=== PATIENT | male | born 1950 | race Caucasian/White ===

== ENCOUNTER 2020-07-15 08:51 | Outpatient (REF) | payer MEDICARE, OTHER, SELFPAY ==
[2020-07-15 09:25] LABS: MANUAL DIFF FLAG NO
[2020-07-15 09:29] LABS: Basophils Percent Auto 0.4 % (0-2); Eosinophils Absolute Auto 0.3 X10*3/uL (0.0-0.4); Eosinophils Percent Auto 4.9 % (0-4); Glucose Urine UA NEG (NEG); Hematocrit 43.7 % (42-52); Imm Gran Abs Auto 0.01 X10*3/uL (0.00-0.03); Imm Gran Pct Auto 0.2 % (0.0-0.4); Leukocyte Esterase Urine NEG (NEG); Lymphocytes Absolute Auto 1.2 X10*3/uL (1.2-4.9); Mean Corpuscular HGB Conc 34.3 g/dl (31.0-36.0); Mean Corpuscular Hemoglobin 31.7 pg (27.0-33.0); Mean Corpuscular Volume 92.4 fL (80-98); Monocytes Absolute Auto 0.5 X10*3/uL (0.1-1.2); Monocytes Percent Auto 8.8 % (2-11); Neutrophils Absolute Auto 3.6 X10*3/uL (2.0-8.3); Neutrophils Percent Auto 64.7 % (45-73); Nitrite Urine NEG (NEG); PH 5.5 (5.0-8.0); Platelet Count 222 X10*3/uL (160-400); Red Blood Count 4.73 X10*6/uL (4.60-5.80); Red Cell Distribution Width 12.3 % (11.0-16.0); Specific Gravity - Urine 1.025 (1.005-1.025); Urine Blood 1+ (NEG); Urine Ketones NEG (NEG); Urine Protein NEG (NEG-TRACE); White Blood Count 5.5 X10*3/uL (4.8-10.8)
[2020-07-15 09:32] LABS: Appearance Urine CLEAR; Color Urine YELLOW
[2020-07-15 09:50] LABS: Mucus Urine 2+ /LPF; RBC Urine 0-2 /HPF (0); Squamous Epithelial Cell Urine TRACE /LPF; WBC Urine 0-2 /HPF (0-4)
[2020-07-15 09:56] LABS: Alanine Aminotransferase 25 U/L (0-40); Alkaline Phosphatase 57 U/L (39-117); Anion Gap 11 (12-20); Aspartate Amino Transferase 17 U/L (5-37); Bilirubin Total 1.6 mg/dL (0.0-1.0); Blood Urea Nitrogen 18 mg/dL (9-16); Calcium 8.7 mg/dL (8.4-10.2); Carbon Dioxide 27 mmol/L (22-29); Chloride 107 mmol/L (96-108); Cholesterol 195 mg/dL; Estimated Glomerular Filt Rate > 60; Glucose Fasting 106 mg/dL (60-99); HDL Cholesterol 55 mg/dL; LDL Cholesterol Calculated 122 mg/dl; Sodium 141 mmol/L (135-145); Total Protein 6.4 g/dL (6.5-8.0); Triglycerides 90 mg/dL
[2020-07-15 10:21] LABS: Prostate Specific Antigen 4.75 ng/mL (<0.05-4.0)
== END 2020-07-15 08:52 | disposition home or self-care (01) ==
LOC: HO.LAB 08:51
PROVIDERS: PCP Internal Medicine; Visit Provider Internal Medicine
DX: K58.9 Irritable bowel syndrome, unspecified (principal); R79.9 Abnormal finding of blood chemistry, unspecified; E78.00 Pure hypercholesterolemia, unspecified; R97.20 Elevated prostate specific antigen [PSA]
CPT/HCPCS: 36415; 80053; 80061; 81001; 84153; 85025

== ENCOUNTER 2021-08-03 10:49 | Outpatient (REF) | payer MEDICARE, OTHER, SELFPAY ==
[2021-08-03 10:53] LABS: MANUAL DIFF FLAG NO
[2021-08-03 11:08] LABS: Basophils Percent Auto 0.7 % (0-2); Eosinophils Absolute Auto 0.4 X10*3/uL (0.0-0.4); Eosinophils Percent Auto 6.2 % (0-4); Hemoglobin 15.5 g/dl (14.0-18.0); Imm Gran Abs Auto 0.01 X10*3/uL (0.00-0.03); Imm Gran Pct Auto 0.2 % (0.0-0.4); Lymphocytes Absolute Auto 1.4 X10*3/uL (1.2-4.9); Lymphocytes Percent Auto 22.4 % (20-40); Mean Corpuscular HGB Conc 34.4 g/dl (31.0-36.0); Mean Corpuscular Hemoglobin 32.2 pg (27.0-33.0); Mean Corpuscular Volume 93.6 fL (80.0-98.0); Mean Platelet Volume 9.7 fL (9.4-12.4); Monocytes Absolute Auto 0.6 X10*3/uL (0.1-1.2); Monocytes Percent Auto 9.5 % (2-11); Neutrophils Absolute Auto 3.7 x10*3/uL (2.0-8.3); Platelet Count 235 X10*3/uL (160-400); Red Blood Count 4.81 X10*6/uL (4.60-5.80); Red Cell Distribution Width 12.3 % (11.0-16.0); White Blood Count 6.1 X10*3/uL (4.8-10.8)
[2021-08-03 11:15] LABS: Appearance Urine CLEAR; Color Urine YELLOW; Glucose Urine UA NEG (NEG); Leukocyte Esterase Urine NEG (NEG); Nitrite Urine NEG (NEG); Specific Gravity - Urine >= 1.030 (1.005-1.025); Urine Blood 1+ (NEG); Urine Ketones NEG (NEG); Urine Protein NEG (NEG-TRACE)
[2021-08-03 11:49] LABS: Mucus Urine 2+ /LPF; RBC Urine 0-2 /HPF (0); WBC Urine 0-2 /HPF (0-4)
[2021-08-03 12:15] LABS: Alanine Aminotransferase 24 U/L (0-40); Alkaline Phosphatase 55 U/L (39-117); Anion Gap 13 (12-20); Aspartate Amino Transferase 18 U/L (5-37); Bilirubin Total 1.5 mg/dL (0.0-1.0); Blood Urea Nitrogen 16 mg/dL (9-16); Carbon Dioxide 24 mmol/L (22-29); Chloride 108 mmol/L (96-108); Cholesterol 196 mg/dL; Estimated Glomerular Filt Rate > 60; Glucose Fasting 94 mg/dL (60-99); HDL Cholesterol 46 mg/dL; LDL Cholesterol Calculated 128 mg/dl; Potassium 4.3 mmol/L (3.3-5.1); Sodium 141 mmol/L (135-145); Total Protein 6.8 g/dL (6.5-8.0); Triglycerides 111 mg/dL
[2021-08-03 12:24] LABS: PSA,Total (Free>4and<10) 3.31 ng/mL (0.00-4.00)
== END 2021-08-03 10:50 | disposition home or self-care (01) ==
LOC: HO.LNP 10:49
PROVIDERS: PCP Internal Medicine; Visit Provider Internal Medicine
DX: Z12.5 Encounter for screening for malignant neoplasm of prostate (principal); R97.20 Elevated prostate specific antigen [PSA]; E78.00 Pure hypercholesterolemia, unspecified; R79.9 Abnormal finding of blood chemistry, unspecified
CPT/HCPCS: 80053; 80061; 81001; 81003; 84153; 85025

== ENCOUNTER → 2021-09-17 13:19 | Outpatient (BNVA) | payer MEDICARE, OTHER, SELFPAY | PROVIDERS: PCP Internal Medicine; Referring Provider Internal Medicine; Visit Provider Internal Medicine Cardiovascular Disease | DX: R07.89 Other chest pain (principal); E78.5 Hyperlipidemia, unspecified | CPT/HCPCS: 93005; 99202 ==

== ENCOUNTER → 2021-09-21 08:42 | Outpatient (REF) | payer MEDICARE, OTHER, SELFPAY ==
--- NOTE | 2021-09-21 08:46 | CA_ITS ---
Acquisition Time: 2021-09-21 09:07:17 Total Exercise Time: 00:06:51 Test Indications: cp Medications: Protocol: MARTY Max HR: 146 BPM 98% of Pred: 148 BPM Max BP: 166/078 mmHG Max Work Load: 8.2 METS Exercise stress test with exercise 6 min 51 sec of Marty protocol, with mild sob, no chest discomfort, with isolated PAC and PVC, with normotensive response to exercise, without EKG changes meeting criteria for ischemia. Test reviewed with Dr Lopez. Referred By: Td Cheney Overread By: ARETHA MOSCOSO
== END ==
LOC: HO.CARD 08:42
PROVIDERS: Visit Provider Internal Medicine Cardiovascular Disease
DX: R07.89 Other chest pain (principal)
CPT/HCPCS: 93017

== ENCOUNTER 2021-10-18 09:05 | Emergency (ER) | payer MEDICARE, OTHER, SELFPAY ==
--- NOTE | ~2021-10-18 | XR_ITS ---
EXAMINATION: XR KNEE, LEFT CLINICAL INFORMATION: Pain COMPARISON: None TECHNIQUE: Four views of the left knee. FINDINGS: Bones and soft tissues are normal. No fracture or joint effusion. Alignment is anatomic. Joint spaces are well maintained. No abnormal soft tissue calcification. XR/XR knee LT 4V IMPRESSION: No significant osseous changes to explain patient's pain symptoms.
[2021-10-18 09:13] VITALS: BP 129/65; PULSE 60; RESP 14; TEMP 36.4; O2SAT 97; BMI 26.6
--- NOTE | 2021-10-18 09:27 | ED.GENADULT ---
HPI - General Adult General Chief complaint: Extremity Injury, Lower Stated complaint: L knee pain Time Seen by Provider: 10/18/21 09:18 Source: patient Mode of arrival: ambulatory Limitations: no limitations History of Present Illness HPI narrative: 31-year-old healthy male with history high cholesterol and left knee meniscus removal return to the ED for atraumatic left knee pain since yesterday and pain on ambulation. Patient denies any swelling, redness, warmth, fever, chills, leg swelling, chest pain, shortness of breath, or any trauma. Patient states every so often he will have runner's knee last time was a year ago. Patient states had meniscus removal left knee 10 years ago. Patient denies any history of gout, septic joint, DVT, or smoking Related Data Home Medications Medication Instructions Recorded Confirmed omeprazole 20 mg capsule,delayed 20 mg PO QAM PRN 09/17/21 09/17/21 release Previous Rx's Medication Instructions Recorded rosuvastatin 10 mg tablet 10 mg PO DAILY #30 tab 09/17/21 ketorolac 10 mg tablet 10 mg PO Q6H PRN 5 Days #20 tab 10/18/21 prednisone 20 mg tablet 40 mg PO DAILY 5 Days #10 tab 10/18/21 Allergies Allergy/AdvReac Type Severity Reaction Status Date / Time No Known Allergies Allergy Unverified 03/27/20 14:43 [No Known Allergies*] Review of Systems Review of Systems: Atraumatic left knee pain Yes all other systems are reviewed and are negative PMFSH Past Medical History Medical History Hyperlipidemia Surgical History Hx of colonoscopy Family History Family History Father CAD (coronary artery disease) Mother No problems noted. Social History Social History Patient Tobacco Use Status: Former Tobacco user Advance Directives: No Advance Directives Information Provided: No Physical Exam ED Vital Signs: Vital Signs - 24 hr 10/18/21 09:13 Temperature 97.6 F Pulse Rate 60 Respiratory Rate 14 Blood Pressure 129/65 Pulse Oximetry 97 BMI result Body Mass Index 26.6 Const General: cooperative, healthy appearing, comfortable, no acute distress, well developed, alert, awake and Physically active Orientation/consciousness: patient oriented x3 [facility] Head: Yes normal to inspection, Yes No palpable skull fracture present, Yes normocephalic, Yes atraumatic and No abrasion Eyes General: appearance normal, both eyes and all related structures Neck Neck: Yes normal visual inspection, Yes full ROM, Yes no lymphadenopathy, Yes no meningeal signs, Yes trachea midline, No anterior neck swelling and No tender Chest Chest palpation & inspection: normal inspection of the chest and normal palpation of entire chest wall Resp Effort & Inspection: normal respiratory effort and able to speak in complete sentences Auscultation: clear to auscultation bilaterally Cardio Jugular venous distension: no JVD Heart sounds: S1 normal heart sound present and S2 normal heart sound present GI Inspection: Yes normal to inspection and No abdominal wall ecchymosis Palpation (GI): Soft to palpation, not firm, nontender, no guarding and not rigid General: No CVA tenderness and Yes no CVA tenderness Back/Spine/Pelvis Back: no CVA tenderness, No CVA tenderness and No back tenderness Skin General skin exam: no rashes or lesions noted and elasticity normal Neuro General: patient oriented x3, gait normal, tone normal and no meningeal signs Cranial nerves: Yes CN's II-XII intact bilaterally Extrem General: Yes normal to inspection and Yes full ROM Knee images: 1. Tenderness on palpation. Negative for any warmth, swelling, erythema,crepitus, deformity or stiffness. Negative for any balloment sign. Patient able to flex and extend knee. Left leg/ankle/foot negative for any swelling, erythema, ecchymosis, warmth, crepitus, or deformity. Negative for calf tenderness. Left lower extremity motor/neuro/vascular exam intact Psych Appearance: grossly normal, well kempt and not disheveled Course Course Course Narrative: Toradol, prednisone, and left knee x-ray ordered. Reevaluation(s) Reevaluation #1: Left knee came back normal. Patient ambulate on his own. Patient will be discharged with Toradol and steroids. Patient informed to follow orthopedic clinic. Patient discharged with chris bandages. Time: 10:24 Medical Decision Making MDM Narrative Medical decision making narrative: Left knee pain. Chronic Discharge Plan Discharge Clinical Impression: Knee pain, left Patient Disposition: Home, Self-Care Additional Instructions: Your x-ray came back normal and negative for any fluid, fracture, or signs of arthritis. You need to follow-up with orthopedics for MRI to see there is any new meniscus/ligament injury. Return to the ED for any swelling, redness, warmth, knee stiffness, fever, chills, inability to walk, or any other concerning symptoms. Prescriptions: New prednisone 20 mg tablet 40 mg PO DAILY 5 Days Qty: 10 0RF ketorolac 10 mg tablet 10 mg PO Q6H PRN (Reason: pain) 5 Days Qty: 20 0RF Rx Instructions: Patient received Toradol 30mg IM in the ED. No Action omeprazole 20 mg capsule,delayed release(DR/EC) 20 mg PO QAM PRN0RF rosuvastatin 10 mg tablet 10 mg PO DAILY Qty: 30 2RF Referrals: Michael Riojas MD [Physician] - (Chronic left knee pain. pmh of left knee meniscus surgery) Interventions: ED Discharge Assessment Last Done: 10/18/21 10:33 Discharge Date/Time: 10/18/21 10:33 Print Language: Lao
[2021-10-18] MEDS: predniSONE 20 MG TABLET 60 MG PO (09:44)
[2021-10-18] MEDS: Ketorolac Tromethamine 30 MG/ML VIAL IM (09:45)
== END 2021-10-18 10:33 | disposition home or self-care (01) ==
PROVIDERS: Emergency Provider Emergency Medicine; PCP Internal Medicine
DX: M25.562 Pain in left knee (principal); Z87.891 Personal history of nicotine dependence; Z79.899 Other long term (current) drug therapy
CPT/HCPCS: 73564; 96372; 99284; J1885

== ENCOUNTER 2021-11-09 10:27 | Outpatient (REF) | payer MEDICARE, OTHER, SELFPAY ==
[2021-11-09 11:18] LABS: Cholesterol 175 mg/dL; HDL Cholesterol 57 mg/dL; LDL Cholesterol Calculated 106 mg/dl; Triglycerides 64 mg/dL
[2021-11-12 14:36] LABS: CRP High Sensitivity 0.7 mg/L
== END 2021-11-09 10:28 | disposition home or self-care (01) ==
LOC: HO.LAB 10:27
PROVIDERS: PCP Internal Medicine; Visit Provider Internal Medicine Cardiovascular Disease
DX: E78.5 Hyperlipidemia, unspecified (principal)
CPT/HCPCS: 36415; 80061; 86141

== ENCOUNTER 2021-11-10 10:05 | Outpatient (REF) | payer MEDICARE, OTHER, SELFPAY ==
--- NOTE | ~2021-11-10 | XR_ITS ---
EXAMINATION: XR KNEE AP STANDING CLINICAL INFORMATION: Pain COMPARISON: Previous x-ray most recent July 2019 and October 2021 TECHNIQUE: AP bilateral standing view of the knees and lateral and sunrise view of the left knee was obtained. FINDINGS: Left: Bone alignment is normal. No fracture or dislocation is seen. The joint spaces are normal. There is no joint effusion. Standing AP view of the right knee is unremarkable. XR/XR knee LT 1V IMPRESSION: Normal knees.
--- NOTE | ~2021-11-10 | XR_ITS ---
EXAMINATION: XR KNEE AP STANDING CLINICAL INFORMATION: Pain COMPARISON: Previous x-ray most recent July 2019 and October 2021 TECHNIQUE: AP bilateral standing view of the knees and lateral and sunrise view of the left knee was obtained. FINDINGS: Left: Bone alignment is normal. No fracture or dislocation is seen. The joint spaces are normal. There is no joint effusion. Standing AP view of the right knee is unremarkable. XR/XR knee standing BI IMPRESSION: Normal knees.
== END 2021-11-10 10:06 | disposition home or self-care (01) ==
LOC: HO.HOSX 10:05
PROVIDERS: PCP Internal Medicine; Visit Provider Physician Assistant
DX: M17.12 Unilateral primary osteoarthritis, left knee (principal)
CPT/HCPCS: 20610; 73560; 73565; 99202; J1040

== ENCOUNTER 2021-11-20 13:10 | Outpatient (REF) | payer MEDICARE, OTHER, SELFPAY ==
[2021-11-20 13:26] LABS: OBS1 NEGATIVE (NEGATIVE); OBS2 NEGATIVE (NEGATIVE); OBS3 NEGATIVE (NEGATIVE)
[2021-11-20 13:27] LABS: OBS Int Ctl Valid YES
== END 2021-11-20 13:11 | disposition home or self-care (01) ==
LOC: HO.LNP 13:10
PROVIDERS: Visit Provider Internal Medicine Gastroenterology
DX: Z12.11 Encounter for screening for malignant neoplasm of colon (principal)
CPT/HCPCS: 82270

== ENCOUNTER → 2021-12-03 10:07 | Outpatient (BNVA) | payer MEDICARE, OTHER, SELFPAY | PROVIDERS: PCP Internal Medicine; Referring Provider Internal Medicine; Visit Provider Internal Medicine Cardiovascular Disease | DX: I25.10 Atherosclerotic heart disease of native coronary artery without angina pectoris (principal); Z79.899 Other long term (current) drug therapy | CPT/HCPCS: 99212 ==

== ENCOUNTER 2022-02-25 09:55 | Outpatient (REF) | payer MEDICARE, OTHER, SELFPAY ==
[2022-02-25 10:14] LABS: MANUAL DIFF FLAG NO
[2022-02-25 11:05] LABS: Basophils Percent Auto 0.4 % (0-2); Eosinophils Absolute Auto 0.3 X10*3/uL (0.0-0.4); Eosinophils Percent Auto 5.5 % (0-4); Hematocrit 41.5 % (42.0-52.0); Hemoglobin 14.3 g/dl (14.0-18.0); Lymphocytes Absolute Auto 0.9 X10*3/uL (1.2-4.9); Lymphocytes Percent Auto 17.1 % (20-40); Mean Corpuscular HGB Conc 34.5 g/dl (31.0-36.0); Mean Corpuscular Hemoglobin 31.8 pg (27.0-33.0); Mean Corpuscular Volume 92.2 fL (80.0-98.0); Mean Platelet Volume 9.5 fL (9.4-12.4); Monocytes Absolute Auto 0.5 X10*3/uL (0.1-1.2); Monocytes Percent Auto 8.8 % (2-11); Neutrophils Absolute Auto 3.5 x10*3/uL (2.0-8.3); Neutrophils Percent Auto 68.2 % (45-73); Platelet Count 204 X10*3/uL (160-400); Red Cell Distribution Width 12.4 % (11.0-16.0); White Blood Count 5.1 X10*3/uL (4.8-10.8)
[2022-02-25 11:49] LABS: Anion Gap 14 (12-20); Blood Urea Nitrogen 17 mg/dL (9-16); Calcium 8.6 mg/dL (8.4-10.2); Carbon Dioxide 25 mmol/L (22-29); Chloride 108 mmol/L (96-108); Cholesterol 142 mg/dL; Estimated Glomerular Filt Rate > 60; Glucose Fasting 88 mg/dL (60-99); HDL Cholesterol 57 mg/dL; LDL Cholesterol Calculated 73 mg/dl; Potassium 4.2 mmol/L (3.3-5.1); Sodium 143 mmol/L (135-145); Triglycerides 64 mg/dL; Uric Acid 4.9 mg/dL (3.4-7.0)
== END 2022-02-25 09:56 | disposition home or self-care (01) ==
LOC: HO.LAB 09:55
PROVIDERS: Absent Provider Family Medicine; PCP Family Medicine; Visit Provider Internal Medicine Cardiovascular Disease
DX: Z00.00 Encounter for general adult medical examination without abnormal findings (principal); M25.562 Pain in left knee; E78.5 Hyperlipidemia, unspecified
CPT/HCPCS: 36415; 80048; 80061; 84550; 85025

== ENCOUNTER 2022-07-27 10:43 | Outpatient (REF) | payer MEDICARE, OTHER, SELFPAY ==
[2022-07-27 10:47] LABS: MANUAL DIFF FLAG NO
[2022-07-27 11:25] LABS: Basophils Percent Auto 0.5 % (0-2); Eosinophils Absolute Auto 0.2 X10*3/uL (0.0-0.4); Eosinophils Percent Auto 3.8 % (0-4); Hematocrit 43.1 % (42.0-52.0); Hemoglobin 14.8 g/dl (14.0-18.0); Imm Gran Abs Auto 0.02 X10*3/uL (0.00-0.03); Imm Gran Pct Auto 0.3 % (0.0-0.4); Lymphocytes Absolute Auto 1.2 X10*3/uL (1.2-4.9); Lymphocytes Percent Auto 21.2 % (20-40); Mean Corpuscular HGB Conc 34.3 g/dl (31.0-36.0); Mean Corpuscular Volume 93.1 fL (80.0-98.0); Mean Platelet Volume 9.9 fL (9.4-12.4); Monocytes Absolute Auto 0.5 X10*3/uL (0.1-1.2); Monocytes Percent Auto 9.4 % (2-11); Neutrophils Absolute Auto 3.7 x10*3/uL (2.0-8.3); Neutrophils Percent Auto 64.8 % (45-73); Platelet Count 218 X10*3/uL (160-400); Red Blood Count 4.63 X10*6/uL (4.60-5.80); Red Cell Distribution Width 12.8 % (11.0-16.0); White Blood Count 5.8 X10*3/uL (4.8-10.8)
[2022-07-27 11:27] LABS: Appearance Urine Clear; Color Urine Yellow; Glucose Urine UA Negative (Negative); Leukocyte Esterase Urine Negative (Negative); Nitrite Urine Negative (Negative); PH 5.5 (5.0-9.0); UMIC TRIGGER UACC YES; Urine Blood Small (1+) (Negative); Urine Ketones Negative (Negative); Urine Protein Negative (Neg-Trace)
[2022-07-27 11:42] LABS: Bacteria Urine None Seen (None Seen); Hyaline Casts Urine 0-2 /LPF (0-2); RBC Urine 0-2 /HPF (0-2); Squamous Epithelial Cell Urine 0-2 /HPF (0-2); WBC Urine 0-5 /HPF (0-5)
[2022-07-27 12:39] LABS: Alanine Aminotransferase 26 U/L (0-40); Alkaline Phosphatase 46 U/L (39-117); Anion Gap 11 (12-20); Aspartate Amino Transferase 21 U/L (5-37); Bilirubin Total 1.3 mg/dL (0.0-1.0); Blood Urea Nitrogen 17 mg/dL (9-16); Calcium 9.1 mg/dL (8.4-10.2); Carbon Dioxide 26 mmol/L (22-29); Chloride 106 mmol/L (96-108); Cholesterol 152 mg/dL; Estimated Glomerular Filt Rate > 60; Glucose Fasting 94 mg/dL (60-99); HDL Cholesterol 67 mg/dL; LDL Cholesterol Calculated 75 mg/dl; Sodium 139 mmol/L (135-145); Total Protein 6.5 g/dL (6.5-8.0); Triglycerides 53 mg/dL
[2022-07-27 13:05] LABS: PSA,Total (Free>4and<10) 4.66 ng/mL (0.00-4.00)
[2022-07-28 09:28] LABS: Free Prostate Spec Ag 0.8 ng/mL; Percent Free Prostate Spec Ag 21 % (calc) (>25); Prostate Specific Ag Total 3.9 ng/mL (< OR = 4.0)
== END 2022-07-27 10:44 | disposition home or self-care (01) ==
LOC: HO.LNP 10:43
PROVIDERS: Visit Provider Internal Medicine
DX: Z12.5 Encounter for screening for malignant neoplasm of prostate (principal); R79.9 Abnormal finding of blood chemistry, unspecified; E78.00 Pure hypercholesterolemia, unspecified; I25.10 Atherosclerotic heart disease of native coronary artery without angina pectoris; R97.20 Elevated prostate specific antigen [PSA]
CPT/HCPCS: 80053; 80061; 81001; 84153; 84154; 85025

== ENCOUNTER → 2022-11-30 09:51 | Outpatient (BNVA) | payer MEDICARE, OTHER, SELFPAY | PROVIDERS: PCP Internal Medicine; Referring Provider Internal Medicine; Visit Provider Internal Medicine Cardiovascular Disease | DX: I25.10 Atherosclerotic heart disease of native coronary artery without angina pectoris (principal) | CPT/HCPCS: 93005; 99212 ==

== ENCOUNTER 2023-01-24 10:50 | Outpatient (REF) | payer MEDICARE, OTHER, SELFPAY ==
[2023-01-24 12:00] LABS: Alanine Aminotransferase 27 U/L (0-40); Albumin Level 4.1 g/dL (3.5-5.0); Alkaline Phosphatase 48 U/L (39-117); Aspartate Amino Transferase 20 U/L (5-37); Bilirubin Direct 0.5 mg/dL (0.0-0.5); Bilirubin Total 1.3 mg/dL (0.0-1.0); Cholesterol 155 mg/dL; HDL Cholesterol 70 mg/dL; LDL Cholesterol Calculated 74 mg/dl; Triglycerides 55 mg/dL
[2023-01-24 12:33] LABS: PSA,Total (Free>4and<10) 5.48 ng/mL (0.00-4.00)
[2023-01-24 15:04] LABS: Reflex LDLD? No
[2023-01-27 10:23] LABS: Percent Free Prostate Spec Ag 21 % (calc) (>25); Prostate Specific Ag Total 4.7 ng/mL (< OR = 4.0)
== END 2023-01-24 10:51 | disposition home or self-care (01) ==
LOC: HO.LNP 10:50
PROVIDERS: Visit Provider Internal Medicine
DX: Z12.5 Encounter for screening for malignant neoplasm of prostate (principal); E78.00 Pure hypercholesterolemia, unspecified; R97.20 Elevated prostate specific antigen [PSA]
CPT/HCPCS: 80061; 80076; 84153; 84154

== ENCOUNTER 2023-05-31 09:49 | Outpatient (REF) | payer MEDICARE, OTHER, SELFPAY ==
--- NOTE | ~2023-05-31 | US_ITS ---
EXAMINATION: US ABDOMEN LIMITED CLINICAL INFORMATION: Right upper quadrant pain. COMPARISON: None available. TECHNIQUE: Real-time imaging of the right upper quadrant abdominal viscera. FINDINGS: PANCREAS: Normal. LIVER: The liver is normal in size. The liver contour is normal. There is diffuse increased liver parenchymal echogenicity. There are hyperechoic, circumscribed masses again seen, the largest within the right lobe measuring 1.1 cm and in the left lobe 1.0 cm. These are not clearly changed from 09/18/2007. A 1.7 cm benign, simple left hepatic lobe cyst is seen. There is no intrahepatic biliary duct dilatation seen. GALLBLADDER: Normal. The gallbladder is physiologically distended without evidence of stones, sludge, polyps, wall thickening or pericholecystic fluid. COMMON BILE DUCT: Normal in caliber measuring 0.32 cm in diameter. RIGHT KIDNEY: There is mild pelviectasis, without fausto hydronephrosis. No renal calculi or focal parenchymal lesions. The kidney measures 11.0 cm in maximum dimension. FREE FLUID: None. US/US abdomen limited IMPRESSION: There are hyperechoic, circumscribed masses again seen within the right hepatic lobe, consistent with benign hemangiomas. The examination is otherwise unremarkable.
== END 2023-05-31 09:50 | disposition home or self-care (01) ==
LOC: HO.US 09:49
PROVIDERS: PCP Internal Medicine; Visit Provider Internal Medicine
DX: R10.11 Right upper quadrant pain (principal)
CPT/HCPCS: 76705

== ENCOUNTER 2023-07-29 10:39 | Outpatient (REF) | payer MEDICARE, OTHER, SELFPAY ==
[2023-07-29 10:41] LABS: MANUAL DIFF FLAG NO
[2023-07-29 10:49] LABS: Appearance Urine Clear; Color Urine Yellow; Glucose Urine UA Negative (Negative); Leukocyte Esterase Urine Negative (Negative); Nitrite Urine Negative (Negative); Specific Gravity - Urine 1.025 (1.005-1.025); UMIC TRIGGER UACC YES; Urine Blood Small (1+) (Negative); Urine Ketones Negative (Negative); Urine Protein Negative (Neg-Trace)
[2023-07-29 11:10] LABS: Bacteria Urine None Seen (None Seen); Hyaline Casts Urine 0-2 /LPF (0-2); RBC Urine 0-2 /HPF (0-2); Squamous Epithelial Cell Urine 0-2 /HPF (0-2); WBC Urine 0-5 /HPF (0-5)
[2023-07-29 11:14] LABS: Basophils Percent Auto 0.6 % (0-2); Eosinophils Absolute Auto 0.5 X10*3/uL (0.0-0.4); Eosinophils Percent Auto 8.3 % (0-4); Hematocrit 38.5 % (42.0-52.0); Hemoglobin 13.3 g/dl (14.0-18.0); Imm Gran Abs Auto 0.01 X10*3/uL (0.00-0.03); Imm Gran Pct Auto 0.2 % (0.0-0.4); Lymphocytes Absolute Auto 1.3 X10*3/uL (1.2-4.9); Lymphocytes Percent Auto 23.5 % (20-40); Mean Corpuscular HGB Conc 34.5 g/dl (31.0-36.0); Mean Corpuscular Hemoglobin 31.1 pg (27.0-33.0); Mean Platelet Volume 9.7 fL (9.4-12.4); Monocytes Absolute Auto 0.5 X10*3/uL (0.1-1.2); Neutrophils Absolute Auto 3.1 x10*3/uL (2.0-8.3); Neutrophils Percent Auto 57.4 % (45-73); Platelet Count 227 X10*3/uL (160-400); Red Blood Count 4.28 X10*6/uL (4.60-5.80); Red Cell Distribution Width 12.2 % (11.0-16.0); White Blood Count 5.4 X10*3/uL (4.8-10.8)
[2023-07-29 11:23] LABS: Alanine Aminotransferase 21 U/L (0-40); Albumin Level 3.9 g/dL (3.5-5.0); Alkaline Phosphatase 45 U/L (39-117); Anion Gap 10 (12-20); Aspartate Amino Transferase 19 U/L (5-37); Bilirubin Total 0.9 mg/dL (0.0-1.0); Blood Urea Nitrogen 12 mg/dL (9-16); Calcium 8.7 mg/dL (8.4-10.2); Carbon Dioxide 26 mmol/L (22-29); Chloride 107 mmol/L (96-108); Cholesterol 125 mg/dL (<200); Estimated Glomerular Filt Rate > 60; Glucose Fasting 92 mg/dL (60-99); HDL Cholesterol 57 mg/dL (>40); LDL Cholesterol Calculated 58 mg/dL (<100); Potassium 3.6 mmol/L (3.3-5.1); Sodium 139 mmol/L (135-145); Total Protein 6.7 g/dL (6.5-8.0); Triglycerides 50 mg/dL (<150)
[2023-07-29 14:22] LABS: PSA,Total (Free>4and<10) 5.03 ng/mL (0.00-4.00)
[2023-08-01 10:59] LABS: Free Prostate Spec Ag 0.9 ng/mL; Percent Free Prostate Spec Ag 20 % (calc) (>25); Prostate Specific Ag Total 4.5 ng/mL (< OR = 4.0)
== END 2023-07-29 10:40 | disposition home or self-care (01) ==
LOC: HO.LNP 10:39
PROVIDERS: Visit Provider Internal Medicine
DX: R79.9 Abnormal finding of blood chemistry, unspecified (principal); R97.20 Elevated prostate specific antigen [PSA]; R31.9 Hematuria, unspecified; E78.00 Pure hypercholesterolemia, unspecified; Z12.5 Encounter for screening for malignant neoplasm of prostate
CPT/HCPCS: 80053; 80061; 81001; 84153; 84154; 85025

== ENCOUNTER 2023-08-05 11:08 | Outpatient (REF) | payer MEDICARE, OTHER, SELFPAY ==
[2023-08-05 11:12] LABS: MANUAL DIFF FLAG NO
[2023-08-05 11:48] LABS: Basophils Percent Auto 0.6 % (0-2); Eosinophils Absolute Auto 0.3 X10*3/uL (0.0-0.4); Eosinophils Percent Auto 6.2 % (0-4); Hematocrit 39.7 % (42.0-52.0); Hemoglobin 13.7 g/dl (14.0-18.0); Imm Gran Abs Auto 0.02 X10*3/uL (0.00-0.03); Imm Gran Pct Auto 0.4 % (0.0-0.4); Lymphocytes Absolute Auto 1.2 X10*3/uL (1.2-4.9); Lymphocytes Percent Auto 23.1 % (20-40); Mean Corpuscular HGB Conc 34.5 g/dl (31.0-36.0); Mean Corpuscular Hemoglobin 30.9 pg (27.0-33.0); Mean Corpuscular Volume 89.6 fL (80.0-98.0); Mean Platelet Volume 9.6 fL (9.4-12.4); Monocytes Absolute Auto 0.4 X10*3/uL (0.1-1.2); Monocytes Percent Auto 8.9 % (2-11); Neutrophils Percent Auto 60.8 % (45-73); Platelet Count 197 X10*3/uL (160-400); Red Blood Count 4.43 X10*6/uL (4.60-5.80); Red Cell Distribution Width 12.5 % (11.0-16.0)
[2023-08-05 11:56] LABS: Iron 69 mcg/dL (45-160); Percent Iron Saturation 27 % (15-50); Total Iron Binding Capacity 256 mcg/dL (228-428); Unsaturated Iron Binding 187 ug/dL
[2023-08-05 12:31] LABS: Folate 5.9 ng/mL (> or = 4.0); Vitamin B12 457 pg/mL (200-900)
== END 2023-08-05 11:09 | disposition home or self-care (01) ==
LOC: HO.LNP 11:08
PROVIDERS: Visit Provider Internal Medicine
DX: D64.9 Anemia, unspecified (principal)
CPT/HCPCS: 82607; 82746; 83540; 85025

== ENCOUNTER 2023-11-04 11:23 | Outpatient (REF) | payer MEDICARE, OTHER, SELFPAY ==
[2023-11-04 11:27] LABS: MANUAL DIFF FLAG NO
[2023-11-04 11:29] LABS: Basophils Percent Auto 0.7 % (0-2); Eosinophils Absolute Auto 0.2 X10*3/uL (0.0-0.4); Eosinophils Percent Auto 3.8 % (0-4); Hematocrit 40.6 % (42.0-52.0); Hemoglobin 14.3 g/dl (14.0-18.0); Imm Gran Abs Auto 0.01 X10*3/uL (0.00-0.03); Imm Gran Pct Auto 0.2 % (0.0-0.4); Lymphocytes Absolute Auto 1.5 X10*3/uL (1.2-4.9); Lymphocytes Percent Auto 26.4 % (20-40); Mean Corpuscular HGB Conc 35.2 g/dl (31.0-36.0); Mean Corpuscular Hemoglobin 31.9 pg (27.0-33.0); Mean Corpuscular Volume 90.6 fL (80.0-98.0); Mean Platelet Volume 9.4 fL (9.4-12.4); Monocytes Absolute Auto 0.6 X10*3/uL (0.1-1.2); Monocytes Percent Auto 10.9 % (2-11); Neutrophils Absolute Auto 3.3 x10*3/uL (2.0-8.3); Platelet Count 225 X10*3/uL (160-400); Red Blood Count 4.48 X10*6/uL (4.60-5.80); Red Cell Distribution Width 13.2 % (11.0-16.0); White Blood Count 5.8 X10*3/uL (4.8-10.8)
== END 2023-11-04 11:24 | disposition home or self-care (01) ==
LOC: HO.LNP 11:23
PROVIDERS: Visit Provider Internal Medicine
DX: D64.9 Anemia, unspecified (principal)
CPT/HCPCS: 85025

== ENCOUNTER 2023-11-29 10:28 | Outpatient (AMB) | payer MEDICARE, OTHER, SELFPAY ==
[2023-11-29 10:42] VITALS: BP 110/70; PULSE 54; BMI 24.2
--- NOTE | 2023-11-29 10:42 | A.OFFVIS_ITS ---
Vital Signs 11/29/23 10:42 Height 5 ft 6 in Weight 149 lb 14.629 oz BMI 24.2 BP 110/70 Blood Pressure Location Lt brachial Pulse 54 Intake Visit Reasons: 1 yr f/up Intake Note: 1 year follow-up with ekg Mine Promotor Required: No Allergies No Known Allergies [No Known Allergies*] Allergy (Unverified 08/26/22 14:31) Medication List - Last Reconciled 11/29/23 by Td Cheney MD aspirin (Adult Aspirin Regimen) 81 mg PO DAILY ibuprofen 600 mg PO Q8H PRN omeprazole 20 mg PO QAM PRN rosuvastatin 40 mg PO DAILY HPI Comments Details: Edinson comes for follow-up. He has been doing well from cardiac perspective. Denies any exertional chest pain or shortness of breath. Continues to remain active. His LDL is well optimized at 58 mg/dL on current therapy. Denies any heart failure symptoms. Denies any palpitation, lightheadedness, syncope. PFSH Medical History CAD (coronary artery disease) Hyperlipidemia Surgical History Hx of colonoscopy Family History Father CAD (coronary artery disease) Mother No problems noted. Social History Patient Tobacco Use Status: Former Tobacco user Current occupational status: retired Current occupation: lt handed Review of Systems Const Denies chills, Denies fatigue, Denies fever(s), Denies frequent falls, Denies weakness, Denies weight gain and Denies weight loss ENT Denies dizziness Card Denies chest pain, Denies leg edema, Denies lightheadedness, Denies palpitations, Denies dyspnea, Denies dyspnea on exertion, Denies orthopnea and Denies other (loss of consciousness) Resp Denies cough, Denies dyspnea and Denies dyspnea on exertion GI Denies hematochezia and Denies change in stool character Musc Denies abnormal gait, Denies muscle weakness, Denies numbness, Denies radiating pain into limb and Denies tingling Neuro Denies Abnormal speech present, Denies abnormal gait, Denies dizziness, Denies frequent falls, Denies numbness, Denies tingling and Denies weakness Endo Denies fatigue and Denies palpitations Physical Exam Vital Signs: Last Vital Signs Pulse 54 11/29/23 10:42 BP 110/70 11/29/23 10:42 BMI result Body Mass Index 24.2 Const General: cooperative, comfortable, no acute distress, alert, awake, Physically active and well groomed Nutritional Appearance: average body habitus Orientation/consciousness: patient oriented x3 Limitations: no limitations Neck Neck: Yes trachea midline, Yes supple and Yes no JVD Chest Chest palpation & inspection: normal inspection of the chest Resp Effort & Inspection: normal respiratory effort Auscultation: clear to auscultation bilaterally Cardio Jugular venous distension: no JVD Palpation: normal PMI Rate: regular rate Rhythm: regular rhythm Heart sounds: S1 normal heart sound present, S2 normal heart sound present, no click, no gallops, no murmurs and no rubs GI Auscultation: normal bowel sounds Skin General skin exam: no rashes or lesions noted Neuro General: patient oriented x3 and no focal motor deficits Speech: No Abnormal speech present Extrem General: Yes no clubbing, cyanosis or edema Psych Appearance: grossly normal Office Procedures EKG Details: EKG shows sinus bradycardia 56 beats per minute 43705-[id number], Complete Assessment & Plan Assessment & Plan (1) CAD (coronary artery disease): Comment: Coronary calcium score of 154, predominantly in the LAD suggestive of atherosclerotic disease. Nonobstructive as his cardiac stress test was within normal limits Code(s): I25.10 - Atherosclerotic heart disease of [place] coronary artery without angina pectoris Category: Medical Plan: Nonobstructive CAD with no symptoms at high workload. Continue aggressive medical therapy. Continue aspirin as well as high-intensity statin therapy. LDL is extremely well optimized. Continue the same. Importance of good medical therapy was discussed advised to continue to participate in physical activity as tolerated. No further workup is indicated. Will follow up in the clinic in 2 years, sooner p.r.n.. Thank you for allowing me to partake in his care Coding Level of Care Code Est Pt Level 3 (64162) Diagnoses CAD (coronary artery disease) I25.10 CPT Codes EKG - CPT: 43545-[id number], Complete ([id number])
== END 2023-11-29 11:18 | disposition home or self-care (01) ==
PROVIDERS: PCP Internal Medicine; Visit Provider Internal Medicine Cardiovascular Disease
DX: I25.10 Atherosclerotic heart disease of native coronary artery without angina pectoris (principal)
CPT/HCPCS: 93010; 99213

== ENCOUNTER → 2023-11-29 10:28 | Outpatient (BNVA) | payer MEDICARE, OTHER, SELFPAY | PROVIDERS: Visit Provider Internal Medicine Cardiovascular Disease | DX: I25.10 Atherosclerotic heart disease of native coronary artery without angina pectoris (principal) | CPT/HCPCS: 93005; 99212 ==

== ENCOUNTER 2024-08-02 07:30 | Outpatient (REF) | payer MEDICARE, OTHER, SELFPAY ==
[2024-08-02 11:22] LABS: MANUAL DIFF FLAG NO
[2024-08-02 11:36] LABS: Appearance Urine Clear; Basophils Percent Auto 0.6 % (0-2); Color Urine Yellow; Eosinophils Absolute Auto 0.2 X10*3/uL (0.0-0.4); Eosinophils Percent Auto 4.9 % (0-4); Glucose Urine UA Negative (Negative); Hematocrit 42.4 % (42.0-52.0); Hemoglobin 14.5 g/dl (14.0-18.0); Imm Gran Abs Auto 0.01 X10*3/uL (0.00-0.03); Imm Gran Pct Auto 0.2 % (0.0-0.4); Leukocyte Esterase Urine Negative (Negative); Lymphocytes Absolute Auto 1.1 X10*3/uL (1.2-4.9); Lymphocytes Percent Auto 23.7 % (20-40); Mean Corpuscular HGB Conc 34.2 g/dl (31.0-36.0); Mean Corpuscular Volume 93.6 fL (80.0-98.0); Mean Platelet Volume 9.5 fL (9.4-12.4); Monocytes Absolute Auto 0.5 X10*3/uL (0.1-1.2); Monocytes Percent Auto 9.5 % (2-11); Neutrophils Absolute Auto 2.9 x10*3/uL (2.0-8.3); Neutrophils Percent Auto 61.1 % (45-73); Nitrite Urine Negative (Negative); Platelet Count 205 X10*3/uL (160-400); Red Blood Count 4.53 X10*6/uL (4.60-5.80); Red Cell Distribution Width 13.2 % (11.0-16.0); Specific Gravity - Urine >= 1.030 (1.005-1.025); UMIC TRIGGER UACC YES; Urine Blood Small (1+) (Negative); Urine Ketones Negative (Negative); Urine Protein Negative (Neg-Trace); White Blood Count 4.7 X10*3/uL (4.8-10.8)
[2024-08-02 11:42] LABS: Bacteria Urine None Seen (None Seen); Hyaline Casts Urine 0-2 /LPF (0-2); Squamous Epithelial Cell Urine 0-2 /HPF (0-2); WBC Urine 0-5 /HPF (0-5)
[2024-08-02 11:57] LABS: Alanine Aminotransferase 26 U/L (0-40); Alkaline Phosphatase 43 U/L (39-117); Anion Gap 8 (12-20); Aspartate Amino Transferase 25 U/L (5-37); Bilirubin Total 1.2 mg/dL (0.0-1.0); Blood Urea Nitrogen 20 mg/dL (9-16); Calcium 9.4 mg/dL (8.4-10.2); Carbon Dioxide 29 mmol/L (22-29); Chloride 110 mmol/L (96-108); Cholesterol 167 mg/dL (<200); Estimated Glomerular Filt Rate > 60; Glucose Fasting 98 mg/dL (60-99); HDL Cholesterol 72 mg/dL (>40); LDL Cholesterol Calculated 86 mg/dL (<100); Potassium 3.8 mmol/L (3.3-5.1); Sodium 143 mmol/L (135-145); Total Protein 7.1 g/dL (6.5-8.0); Triglycerides 48 mg/dL (<150)
[2024-08-02 12:20] LABS: PSA,Total (Free>4and<10) 5.76 ng/mL (0.00-4.00)
--- OUTSIDE RECORDS SUMMARY | 2024-08-02 13:42 | XMS_ITS ---
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0 % Platelet Count 205 160-400 X10*3/uL Mean Platelet Volume 9.5 9.4-12.4 fL Neutrophils Percent Auto 61.1 45-73 % Imm Gran Pct Auto 0.2 0.0-0.4 % Lymphocytes Percent Auto 23.7 20-40 % Monocytes Percent Auto 9.5 2-11 % Eosinophils Percent Auto 4.9 0-4 % Basophils Percent Auto 0.6 0-2 % NRBC Pct Auto 0.0 0.0-0.2 /100WBC Neutrophils Absolute Auto 2.9 2.0-8.3 x10*3/u L Imm Gran Abs Auto 0.01 0.00-0.03 X10*3/uL Lymphocytes Absolute Auto 1.1 1.2-4.9 X10*3/u L Monocytes Absolute Auto 0.5 0.1-1.2 X10*3/uL Eosinophils Absolute Auto 0.2 0.0-0.4 X10*3/u L Basophils Absolute Auto 0.0 0.0-0.2 X10*3/uL NRBC Abs Auto 0.000 0.0-0.012 X10*3/uL PSA,Total (Free>4and<10) (No t yet reviewed by provider) Interpretation:[facility] 08/09 PSA Performing Lab:[address] [phone] Notes/Report: PSA,Total (Free>4and<10) 5.76 0.00-4.00 ng/mL PSA methodology: Faustin Alinity i Chemiluminescent Microparticle Immunoassay (CMIA) UA ClnCatch+Micro w/rflx Cul t (Not yet reviewed by provider) Interpretation: Performing Lab:[facility], [address] [place] [phone] Notes/Report: [id number] Urine, Clean Catch Color Urine Yellow Appearance Urine Clear PH 6.0 5.0-9.0 Glucose Urine UA Negative Negative mg/dL Urine Blood Small (1+) Negative Specific [place] - Urine >= 1.030 1.005-1.025 Urine Protein Negative Neg-Trace mg/dL Urine Ketones Negative Negative mg/dL Nitrite Urine Negative Negative Leukocyte Esterase Urine Negative Negative RBC Urine 6-10 0-2 /HPF WBC Urine 0-5 0-5 /HPF Squamous Epithelial Cell Urine 0-2 0-2 /HPF Bacteria Urine None Seen None Seen Hyaline Casts Urine 0-2 0-2 /LPF Comprehensive [place]. Panel Fa st Reviewed date:08/02/2024 12:57:02 PM Interpretation: Performing Lab:[facility], [address] [place] [phone] Notes/Report: Sodium 143 135-145 mmol/L Potassium 3.8 3.3-5.1 mmol/L Chloride 110 96-108 mmol/L Carbon Dioxide 29 22-29 mmol/L Anion Gap 8 12-20 Blood Urea Nitrogen 20 9-16 mg/dL Creatinine 0.91 0.5-1.4 mg/dL Estimated Glomerular Filt Rate > 60 Chronic Kidney Disease: Estimated GFR < 60 mL/min/1.73m2 Severe Kidney Disease: Estimated GFR < 15 mL/min/1.73m2 Glucose Fasting 98 60-99 mg/dL Calcium 9.4 8.4-10.2 mg/dL Bilirubin Total 1.2 0.0-1.0 mg/dL Aspartate Amino Transferase 25 5-37 U/L Alanine Aminotransferase 26 0-40 U/L Total Protein 7.1 6.5-8.0 g/dL Albumin Level 4.0 3.5-5.0 g/dL Alkaline Phosphatase 43 39-117 U/L Lipid Panel Reviewed date:08/02/2024 12:16:02 PM Interpretation: Performing Lab:[facility], [address] [place] [phone] Notes/Report: Triglycerides 48 <150 mg/dL Desirable Triglyceride: less than 150 mg/dL Borderline High Triglyceride 150-199 mg/dL High Triglyceride: 200-499 mg/dL Very High Triglyceride: greater than or equal to 5OO mg/dL Cholesterol 167 <200 mg/dL Desirable Cholesterol: less than 200 mg/dL Borderline High Cholesterol: 200-239 mg/dL High Cholesterol: greater than 239 mg/dL LDL Cholesterol Calculated 86 <100 mg/dL Desirable LDL: less than 100 mg/dL Near Optimal/Above Optimal LDL: 110-129 mg/dL Borderline High LDL: 130-159 mg/dL High LDL: 160-189 mg/dL Very High LDL: greater than or equal to 190 mg/dL HDL Cholesterol 72 >40 mg/dL Desirable HDL: greater than 40 mg/dL Note: This HDL assay may give artificially low results in patients with liver disease. REASON FOR VISIT yearly fasting labs Encounters Encounter Location Date Provider Diagnosis Gopal Anderson MD [address] [place], [place] [id number] 08/02/2024 Gopal Anderson Elevated BUN R79.9 ; Pure hypercholesterolemia E78.00 ; Elevated PSA R97.20 and Hematuria, unspecified type R31.9 Assessments Encounter Date Diagnosis (ICD Code) Assessment Notes Treatment Notes Treatment Clinical Notes Section Notes 08/02/2024 Elevated BUN (ICD-10 - R79.9) 08/02/2024 Pure hypercholesterolemia (ICD-10 - E78.00) 08/02/2024 Elevated PSA (ICD-10 - R97.20) 08/02/2024 Hematuria, unspecifi ed type (ICD-10 - R31.9) Plan Of Treatment Pending Test Test Name Order Date Complete Blood Count Auto Diff PSA,Total (Free>4and<10) 08/02/2024 UA ClnCatch+Micro w/rflx Cult 08/02/2024 Next Appt Details Provider Name:Gopal Ruiz ier, 08/09/2024 08:30:00 AM, [address] [place] [address] Drive, [address], [place], [place], [id number], Progress Notes * Edinson ROCHEDOB:[birth year] (74 yo M)Acc No.[id number]:08/02/2024 Progress Note Patient:?Edinson ROCHE Provider:?Gopal Anderson MD :1950???Age:74 Y???Sex:Male Corky e:08/02/2024 Address:[address] [place] [address], [address], [place] Subjective: * Chief Complaints: * ???1. Yearly fasting labs. * Medical History:? Objective: * Vitals:? Assessment: * Assessment: 1.?Elevated BUN - R79.9 (Millicent gandhi)???2.?Pure hypercholesterolemia - E78.00???3.?Elevated PSA - R97.20???4.?Hematuria, unspecified type - R31.9??? Plan: * Treatment: 2.?Pure hypercholesterolemia ?LAB: Complete Blood Count Auto Diff (Collection Date & Time - 08/02/2024 07:30 AM) ?LAB: PSA,Total (Free>4and<10) (Collection Date & Time - 08/02/2024 07:30 AM) ?LAB: UA ClnCatch+Micro w/rflx Cult (Collection Date & Time - 08/02/2024 07:30 AM) ?LAB: Comprehensive [place]. Panel Fast (Collection Date & Time - 08/02/2024 07:30 AM) ?LAB: Lipid Panel (Collection Date & Time - 08/02/2024 07:30 AM) 3.?Elevated PSA?LAB: Complete Blood Count Auto Diff (Collection Date & Time - 08/02/2024 07:30 AM) ?LAB: PSA,Total (Free>4and<10) (Collection Date & Time - 08/02/2024 07:30 AM) ?LAB: UA ClnCatch+Micro w/rflx Cult (Collection Date & Time - 08/02/2024 07:30 AM) ?LAB: Comprehensive [place]. Panel Fast (Collection Date & Time - 08/02/2024 07:30 AM) ?LAB: Lipid Panel (Collection Date & Time - 08/02/2024 07:30 AM) 4.?Hematuria, unspecified ty pe?LAB: Complete Blood Count Auto Diff (Collection Date & Time - 08/02/2024 07:30 AM) ?LAB: PSA,Total (Free>4and<10) (Collection Date & Time - 08/02/2024 07:30 AM) ?LAB: UA ClnCatch+Micro w/rflx Cult (Collection Date & Time - 08/02/2024 07:30 AM) ?LAB: Comprehensive [place]. Panel Fast (Collection Date & Time - 08/02/2024 07:30 AM) ?LAB: Lipid Panel (Collection Date & Time - 08/02/2024 07:30 AM) * Procedure Codes:?67626 VENIP UNCT, ROUTINE* * * The named appointment provid er may or may not be the originator of this progress note, and it is not deemed complete until electronically signed by the appointment provider. Sign off status: Pending * Provider:?Gopal Anderson MD Date:?0 08/02/2024 Generated for Rosa alexandre/Varsha/Amairani on:?08/02/2024 01:42 PM EST
--- OUTSIDE RECORDS SUMMARY | 2024-08-02 13:42 | XMS_ITS ---
Author Organization Gopal Anderson MD Address [address] [place], [place] [address] Care Team Providers Care Electronic Systems Security Assessment Name Role Phone Gopal Anderson Primary Care Provider [phone] Allergies No Known Allergies REASON FOR VISIT 4 week Medications Medication SIG (Take, Route, Frequency, Duration) Notes Start Date End Date Status ProAir HFA 108 (90 Base) MCG/ACT 2 puffs as needed Inhalation every 6 hrs for 30 days 07/20/2019 Not-Taking Ibuprofen 800 MG 1 tablet with food o r milk as needed Orally Three times a day for 30 days 02/21/2020 Not-Taking Tadalafil 20 MG 1 tablet as needed Orally Once a day as needed for 90 days Active Omeprazole 20 MG TAKE 1 CAPSULE BY [facility] EVERY DAY 30 MINUTES BEFORE BREAKFAST for 90 Active Rosuvastatin Calcium 40 MG 1 tablet Orally Once a day Active Ventolin HFA * 108 (90 Base) MCG/ACT 2 puffs as needed Inhalation every 4 hrs for 30 day(s) 07/22/2014 Not-Taking Desonide 0.05 % 1 application to affected area Externally Twice a day for 30 Not-Taking Valtrex 1 GM 2 tablet Orally ever y 12 hrs for 1 days Active Rosuvastatin Calcium 20 MG 1 tablet Orally Once a day for 30 days 06/18/2024 Active Vital Signs Blood pressure systolic 132 mm Hg 06/18/20 24 Blood pressure diastolic 64 mm Hg 024 Height 66.5 in 06/18/2024 Weight 157 lbs 06/18/2024 BMI 24.96 kg/m2 06/18/2024 weight is up 4 pounds since 05-18-24 Encounters Encounter Location Date Provider Diagnosis Gopal Anderson MD [address] [place], [place] [phone] 06/18/2024 Gopal Anderson CAD (coronary artery disease) I25.10 ; Myalgia, unspecified site M79.10 and Adverse effect of antihyperlipidemic and antiarteriosclerotic drugs, initial encounter T46.6X5A Assessments Encounter Date Diagnosis (ICD Code) Assessment Notes Treatment Notes Treatment Clinical Notes Section Notes 06/18/2024 CAD (coronary artery disease) (ICD-10 - I25.10) never had any chest pain, patient verbalized understanding of medication and directions for use 06/18/2024 Myalgia, unspecified site (ICD-10 - M79.10) 06/18/2024 Adverse effect of antihyperlipidemic and antiarteriosclerotic drugs, initial encounter (ICD-10 - T46.6X5A) possibly he can tolerate a lower dose. will monitor sx's Plan Of Treatment Medication Medication Name Sig Start Date Stop Date Notes Rosuvastatin Calcium 20 MG 1 tablet Oral ly Once a day for 30 days 06/18/2024 Treatment Notes Assessment Notes CAD (coronary artery disease) never had any chest pain, patient verbalized understanding of medication and directions for use Adverse effect of antihyperl ipidemic and antiarteriosclerotic drugs, initial encounter possibly he can tolerate a lower dose. will monitor sx's Next Appt Details Provider Name:Gopal justin, 08/09/2024 08:30:00 AM, [address], [address], [place], [place], [phone], Progress Notes * Edinson ROCHEB:[birth year] (73 yo M)Acc No.[id number]:06/18/2024 Progress Notes Patient:?Edinson Roche Provider:?Gopal Anderson MD :1950???Age:73 Y???Sex:Male Corky e:06/18/2024 Address:[address] [place] [address], [address] [address], [facility] Subjective: * Chief Complaints: * ???4 week * HPI: ???Symptom(s):? patient is a 73 yo male here for 4 week follow up visit, stopped the rosuvastatin and pains were gone in 3 or 4 days. was getting it every time he went to yoga. * ROS:?General/Constitutional:?Denies?Chills.?Denies?Fatigue.?Denies?Fever.?Denies?Headache.?ENT:?Patient denies?decreased sense of smell , any loss of taste , sore throat.?Denies?Sore throat.?Respiratory:?Denies?Cough.?Denies?Shortness of breath at rest.?Denies?Shortness of breath with exertion.?Gastrointestinal:?Denies?Diarrhea.?Denies?Nausea.?Musculoskeletal:?Patient denies?muscle aches.?Peripheral Vascular:?Patient denies?red and blue toes.? * Medical History:? * Surgical History:? * Hospitalization/Major Diagno stic Procedure:? * Medications:?TakingValtrex 1 GM Tablet 2 tablet Orally every 12 hrsRosuvastatin Calcium 40 MG Tablet 1 tablet Orally Once a dayOmeprazole 20 MG Capsule Delayed Release TAKE 1 CAPSULE BY MOUTH EVERY DAY 30 MINUTES BEFORE BREAKFAST Tadalafil 20 MG Tablet 1 tablet as needed Orally Once a day as neededTaking Valtrex 1 GM Tablet 2 tablet Orally every 12 hrsTaking Rosuvastatin Calcium 40 MG Tablet 1 tablet Orally Once a dayTaking Omeprazole 20 MG Capsule Delayed Release TAKE 1 CAPSULE BY MOUTH EVERY DAY 30 MINUTES BEFORE BREAKFAST Taking Tadalafil 20 MG Tablet 1 tablet as needed Orally Once a day as neededNot-Taking/PRNIbuprofen 800 MG Tablet 1 tablet with food or milk as needed Orally Three times a dayProAir HFA 108 (90 Base) MCG/ACT Aerosol Solution 2 puffs as needed Inhalation every 6 hrsDesonide 0.05 % Cream 1 application to affected area Externally Twice a dayVentolin HFA * 108 (90 Base) MCG/ACT Aerosol Solution 2 puffs as needed Inhalation every 4 hrsMedication List reviewed and reconciled with the patientNot-Taking/PRN Ibuprofen 800 MG Tablet 1 tablet with food or milk as needed Orally Three times a dayNot-Taking/PRN ProAir HFA 108 (90 Base) MCG/ACT Aerosol Solution 2 puffs as needed Inhalation every 6 hrsNot-Taking/PRN Desonide 0.05 % Cream 1 application to affected area Externally Twice a dayNot-Taking/PRN Ventolin HFA * 108 (90 Base) MCG/ACT Aerosol Solution 2 puffs as needed Inhalation every 4 hrsMedication List reviewed and reconciled with the patient * Allergies:?N.K.D.A.yes[Aller gies Verified] Objective: * Vitals:?Ht: 66.5, Wt:157, BM I:24.96, BP:132/64 weight is up 4 pounds since 05-18-24. * Examination: ???General Examination: ?GENERAL APPEARANCE:?alert, well hydrated, in no distress.?HEAD:?normocephalic.?EYES:?BOTH EYES , normal.?SKIN:?good turgor.?HEART:?no murmurs, rubs, gallops , regular rate and rhythm.?LUNGS:?no wheezes, rales, rhonchi , good air movement , clear to auscultation bilaterally.? Assessment: * Assessment: 1.?CAD (coronary artery dise ase) - I25.10?2.?Myalgia, unspecified site - M79.10?3.?Adverse effect of antihyperlipidemic and antiarteriosclerotic drugs, initial encounter - T46.6X5A? Plan: * Treatment: 2.?Adverse effect of antihyp erlipidemic and antiarteriosclerotic drugs, initial encounter? Notes: possibly he can tolerate a lower dose. will monitor sx's?? * Procedure Codes:? * * Sign off status: Completed true * Provider:?Gopal Anderson MD Date:?08/19/2023 Generated for Rosa laexandre/Varsha/Rajendrasmitting on:?08/02/2024 01:42 PM EST History and Physical Notes * HPI (History of Present Illness) Category Sub-Category Detail Notes Category Not es Symptom(s) patient is a 73 yo male here for 4 week follow up visit, stopped the rosuvastatin and pains were gone in 3 or 4 days. was getting it every time he went to yoga Examination Category Sub-Category Detail Notes Category Not es General Examination GENERAL APPEARANCE: alert, w ell hydrated, in no distress HEAD: normocephalic EYES: BOTH EYES , normal HEART: no murmurs, rubs, ga llops , regular rate and rhythm LUNGS: no wheezes, rales, r honchi , good air movement , clear to auscultation bilaterally SKIN: good turgor
--- OUTSIDE RECORDS SUMMARY | 2024-08-02 13:42 | XMS_ITS ---
Author Organization Gopal Anderson MD Address [address] [place], [place] [address] Care Team Providers Care Enrober Tender Name Role Phone Gopal Anderson Primary Care Provider Allergies No Known Allergies REASON FOR VISIT has leg cramps from taking Rosuvastatin x 2 years Medications Medication SIG (Take, Route, Frequency, Duration) Notes Start Date End Date Status ProAir HFA 108 (90 Base) MCG/ACT 2 puffs as needed Inhalation every 6 hrs for 30 days 07/20/2019 Not-Taking Ibuprofen 800 MG 1 tablet with food o r milk as needed Orally Three times a day for 30 days 02/21/2020 Not-Taking Ventolin HFA * 108 (90 Base) MCG/ACT 2 puffs as needed Inhalation every 4 hrs for 30 day(s) 07/22/2014 Not-Taking Desonide 0.05 % 1 application to affected area Externally Twice a day for 30 Not-Taking Tadalafil 20 MG 1 tablet as needed Orally Once a day as needed for 90 days Active Valtrex 1 GM 2 tablet Orally ever y 12 hrs for 1 days Active Rosuvastatin Calcium 40 MG 1 tablet Orally Once a day Active Omeprazole 20 MG TAKE 1 CAPSULE BY [facility] EVERY DAY 30 MINUTES BEFORE BREAKFAST for 90 Active Vital Signs Blood pressure systolic 104 mm Hg 05/18/20 24 Blood pressure diastolic 60 mm Hg 024 Height 66.5 in 05/18/2024 Weight 153 lbs 05/18/2024 BMI 24.32 kg/m2 05/18/2024 weight is down 4 pounds [facility] 08-05-23 Encounters Encounter Location Date Provider Diagnosis Gopal Anderson MD [address] [place], [place] [phone] 05/18/2024 Gopal Anderson CAD (coronary artery disease) I25.10 and Bilateral leg cramps R25.2 Assessments Encounter Date Diagnosis (ICD Code) Assessment Notes Treatment Notes Treatment Clinical Notes Section Notes 05/18/2024 CAD (coronary artery disease) (ICD-10 - I25.10) very minimal cad with neg stress 05/18/2024 Bilateral leg cramps (ICD-10 - R25.2) will try stopping the rosuvastatin for a month Plan Of Treatment Treatment Notes Assessment Notes CAD (coronary artery disease) very minim al cad with neg stress Bilateral leg cramps will try stopping t he rosuvastatin for a month Next Appt Details Follow Up: 4 Weeks, Reason: Provider Name:Gopal Ruiz ier, 08/09/2024 08:30:00 AM, [address] [facility], [address], [place], [place], [phone], Progress Notes * Edinson ROCHEDOB:[birth year] (73 yo M)Acc No.[id number]:05/18/2024 Patient:?Edinosn Roche Provider:?Gopal Anderson MD :1950???Age:73 Y???Sex:Male Corky e:05/18/2024 Address:[address] [place] [address], [address] Subjective: * Chief Complaints: * ???has leg cramps from takin g Rosuvastatin x 2 years * HPI: ???Symptom(s):? altagracia is a 73 yo male here with complaint he is getting leg cramps during yoga. thinks it is from rosuvastatin. happenns any time. sometimes leg locks and can't bend it. has been going on couple years. * ROS:?General/Constitutional:?Denies?Chills.?Denies?Fatigue.?Denies?Fever.?Denies?Headache.?ENT:?Patient denies?decreased sense of smell , any loss of taste , sore throat.?Denies?Sore throat.?Respiratory:?Denies?Cough.?Denies?Shortness of breath at rest.?Denies?Shortness of breath with exertion.?Gastrointestinal:?Denies?Diarrhea.?Denies?Nausea.?Musculoskeletal:?Patient denies?muscle aches.?Admits?Leg cramps.?Peripheral Vascular:?Patient denies?red and blue toes.? * Medical [...] 2 puffs as needed Inhalation every 4 hrsNot-Taking/PRN Ibuprofen 800 MG Tablet 1 tablet with food or milk as needed Orally Three times a dayNot-Taking/PRN ProAir HFA 108 (90 Base) MCG/ACT Aerosol Solution 2 puffs as needed Inhalation every 6 hrsNot-Taking/PRN Desonide 0.05 % Cream 1 application to affected area Externally Twice a dayNot-Taking/PRN Ventolin HFA * 108 (90 Base) MCG/ACT Aerosol Solution 2 puffs as needed Inhalation every 4 hrsDiscontinuedAspir-Low 81 MG Tablet Delayed Release 1 tablet Orally Once a dayMedication List reviewed and reconciled with the patientDiscontinued Aspir-Low 81 MG Tablet Delayed Release 1 tablet Orally Once a dayMedication List reviewed and reconciled with the patient * Allergies:?N.K.D.A.yes[Aller gies Verified] Objective: * Vitals:?Ht: 66.5, Wt:153, BM I:24.32, BP:104/60 weight is down 4 pounds since 08-05-23. * Examination: ???General Examination: ?GENERAL APPEARANCE:?pleasant, in no acute distress , male.?HEART:?no murmurs, rubs, gallops , regular rate and rhythm.?LUNGS:?no wheezes, rales, rhonchi , good air movement , clear to auscultation bilaterally.?PERIPHERAL PULSES:?normal on the left not checked on rt.? Assessment: * Assessment: 1.?CAD (coronary artery dise ase) - I25.10 (Primary)?2.?Bilateral leg cramps - R25.2? Plan: * Treatment: 2.?Bilateral leg cramps? Notes: will try stopping the rosuvastatin for a month?? * Procedure Codes:? * Follow Up:?4 Weeks * * Sign off status: Completed true * Provider:?Gopal Anderson MD Date:?1 07/18/2023 Generated for Rosa alexandre/Varsha/Dayanaitting on:?08/02/2024 01:42 PM EST History and Physical Notes * HPI (History of Present Illness) Category Sub-Category Detail Notes Category Not es Symptom(s) altagracia is a [age] yo male here with complaint he is getting leg cramps during yoga. thinks it is from rosuvastatin. happenns any time. sometimes leg locks and can't bend it. has been going on couple years. Examination Category Sub-Category Detail Notes Category Not es General Examination GENERAL APPEARANCE: pleasant , in no acute distress , male HEART: no murmurs, rubs, ga llops , regular rate and rhythm LUNGS: no wheezes, rales, r honchi , good air movement , clear to auscultation bilaterally PERIPHERAL PULSES: normal on the left n ot checked on rt
--- OUTSIDE RECORDS SUMMARY | 2024-08-02 13:43 | XMS_ITS | Patient Health Record ---
Author Organization [facility] Address [address] [place] [address] Care Team Providers Care Mining Captain Name Role Phone Gopal Anderson MD Primary Care Provider Aristides Hoffman Jr Unavailable ALLERGIES Allergen (clinical drug ingredient) Drug/Non Drug Allergy documented on EMR Reaction Allergy Type Onset Date Status seasonal (uncoded) Unknown Allergy A ctive REASON FOR REFERRAL No Information MEDICATIONS Medication SIG (Take, Route, Frequency, Duration) Notes Start Date End Date Status Ketorolac Tromethamine 10 MG TAKE 1 TABLET BY MOUTH EVERY 6 HOURS FOR 5 DAYS NEEDED FOR PAIN Oral for 5 Active Omeprazole 20 MG Oral for 30 A ctive Rosuvastatin Calcium 10 MG TAKE 1 TABLET BY MOUTH DAILY Diagnosis Unavailable Oral for 90 Active IMMUNIZATIONS Vaccine Route Administration Date Status Comme nts Flu vaccine no Preserv 3 and > Unknown 05/11/2015 Admin istered Influenza Unknown 06/02/2021 Administered SOCIAL HISTORY Sex Assigned At : Social History Observation Description Sex Assigned At Unknown PROBLEMS Problem Type ICD Code Onset Dates Problem Status W/U Status Risk SNOMED Code Notes Problem Hemorrhoids, unspecified hemorrhoid type (K64.9) Active confirmed 00708496 Problem Colon cancer screening (Z12.11) Active confirmed 678609493 Problem Gastroesophageal reflux disease without esophagitis (K21.9) Active confirmed 290147205 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 anti-inflammatories (NSAID) (Z79.1) Active confirmed 598421888 PLAN OF TREATMENT Future Test Test Name Order Date COLONOSCOPY 12/25/2015 Insurance Providers Payer Name Payer Address Payer Phone Subscriber Number Group Number Insured Name Patient Relationship to Insured Coverage Start Date Coverage End Date MEDICARE OF [place] [address] [place] [address] [id number] TRACE [employer]E Self - patient is the insured [facility] [address] [place] [phone] [id number] MARYCECELIA TRACE Self - patient is the insured MEDICAL (GENERAL) HISTORY Medical History History ICD Code Colonoscopy, 03/31/16, hyperplastic polyp , ten-year followup 04/05 Anxiety/depression Gastroesophageal reflux disease Elevated cholesterol Surgical History Surgery Date(Month/Year) appendectomy jaw surgery
[2024-08-03 13:04] LABS: Free Prostate Spec Ag 1.3 ng/mL; Percent Free Prostate Spec Ag 26 % (calc) (>25)
== END 2024-08-02 07:31 | disposition home or self-care (01) ==
LOC: HO.LNP 07:30
PROVIDERS: Visit Provider Internal Medicine
DX: R79.9 Abnormal finding of blood chemistry, unspecified (principal); E78.00 Pure hypercholesterolemia, unspecified; R97.20 Elevated prostate specific antigen [PSA]; R31.9 Hematuria, unspecified; Z12.5 Encounter for screening for malignant neoplasm of prostate
CPT/HCPCS: 80053; 80061; 81001; 84153; 84154; 85025

== ENCOUNTER 2025-01-29 09:44 | Outpatient (REF) | payer MEDICARE, OTHER, SELFPAY ==
--- OUTSIDE RECORDS SUMMARY | 2025-01-29 04:00 | XMS_ITS ---
Author Organization Gopal Anderson MD Address [address] [place], [place] [phone] Care Team Providers Care Crystal Flat Grinder Name Role Phone MonicaShilon Primary Care Provider REASON FOR VISIT FASTING LIPIDS Encounters Encounter Location Date Provider Diagnosis Gopal Anderson MD [address] [place] [phone] 01/29/2025 Gopal Anderson Pure hypercholestero lemia E78.00 Assessments Encounter Date Diagnosis (ICD Code) Assessment Notes Treatment Notes Treatment Clinical Notes Section Notes 01/29/2025 Pure hypercholesterolemia (ICD-10 - E78.00) Plan Of Treatment Pending Test Test Name Order Date Liver Panel 01/29/2025 Lipid Panel with Reflex 01/29/2025 Next Appt Details Provider Name:Gopal justin, 02/05/2025 10:00:00 AM, [address] [facility], [address] [facility], [place], [place], [phone], Provider Name:Gopal justin, 08/06/2025 07:15:00 AM, [address], [address], [place], [place], [phone], Provider Name:Gopal Ruiz ier, 08/12/2025 08:30:00 AM, [address], [address], [place], [phone], Progress Notes * Edinson ROCHEDOB:[birth year] (74 yo M)Acc No.[id number]:01/29/2025 Progress Note Patient: Edinson HYATT Provider: Julio C Anderson MD :1950 A ge:74 Y S ex:Male Date:01/29/2025 Address:[address] [place] [address], [address] [place], [place] [address] Subjective: * Chief Complaints: * 1 . FASTING LIPIDS. * Medical History: Objective: * Vitals: Assessment: * Assessment: 1. P ure hypercholesterolemia - E78.00 (Primary) Plan: * Treatment: * Procedure Codes: 3 6415 VENIPUNCT, ROUTINE* * * The named appointment provid er may or may not be the originator of this progress note, and it is not deemed complete until electronically signed by the appointment provider. Sign off status: Pending * Provider: Julio C Anderson MD Date: 01/29/2025 Generated for Rosa alexandre/Varsha/Dayanaitting on: 01/29/2025 10:28 AM EDT
--- OUTSIDE RECORDS SUMMARY | 2025-01-29 10:29 | XMS_ITS | Data Portability ---
Author Organization [place] - [facility], Allergy Address [address] [place] [phone] Assessment No assessment recorded. Plan of Treatment Reminders Order Date Submit Date Provider Last Modified By Organization Details Last Modified Time Details Appointments None record ed. Lab None record ed. Referral None record ed. Procedures None record ed. Surgeries None record ed. Imaging None record ed. Medication Orders None record ed. Patient TargetsNo targets recorded. Patient InstructionsNo instructions recorded. Reason for Referral None Reported. Problems Name Problem SNOMED Code Status Onset Date Resolution Date Notes Provider Name and Address Organization Details Recorded Time Gastroesoph ageal reflux disease without esophagitis 371155288 Active 2020 Gastro-e sophagea l reflux disease without esophagi tis; Note: Date Diagnose d: 05/25/20 11:17 AM (K21.9) Not Available [facility] 4 02:39:51 Dysphonia 28888445 Active 2020 Hoarsene ss; Note: Date Diagnose d: 05/25/20 11:07 AM (R49.0) Not Available [facility] 4 02:39:49 Seasonal allergic rhinitis 097117173 Active 2024 JERE JEFF MD [address] [facility] [address], [place], [phone] , [place] - [facility] 5 14:15:51 Problem Notes None recorded. Medical Equipment None Reported. Medications Name Sig Start Date Stop Date Status Note LastModified by Organization Details LastModified Time desonide 0.05 % topical cream APPLY TO DRY SKIN ON LEFT EYELID IN THE MORNING AND EVENING FOR 7 DAYS 01/28 completed Not Available Not Available Not Available ketoconazol e 2 % shampoo APPLY TO DAMP HAIR, LATHER LEAVE IN 5 MINUTES AND RINSE OUT. USE WHEN SHAMPOOIN G. 01/28 completed Not Available Not Available Not Available triamcinolo ne acetonide 0.1 % topical cream APPLY AM AND PM TO AREAS OF ECZEMA ON ARMS LEGS AND ELBOWS NEEDED. 01/28 completed Not Available Not Available Not Available clobetasol 0.05 % topical foam APPLY SCALP ONCE TO TWICE DAILY NEEDED. 01/28 completed Not Available Not Available Not Available omeprazole 20 mg capsule,del ayed release TAKE 1 CAPSULE BY MOUTH EVERY DAY 30 MINUTES BEFORE BREAKFAST active Not Available Not Available No t Available rosuvastati n 20 mg tablet TAKE 1 TABLET BY MOUTH DAILY active Not Available Not Available No t Available rosuvastati n 40 mg tablet TAKE 1 TABLET BY MOUTH DAILY 01/28 completed Not Available Not Available Not Available tadalafil 20 mg tablet TAKE 1 TABLET BY MOUTH EVERY DAY NEEDED active Not Available Not Available No t Available Vitals None Recorded Social History None recorded. Functional Status None recorded. Mental Status None recorded. Family History Nothing Reported. Medical History No medical history recorded. Past Encounters Encounter ID Performer Location Encounter Start Date Encounter Closed Date Diagnosis/Indication Diagnosis SNOMED-CT Code Diagnosis ICD10 Code Diagnosis Note [id number] JERE JEFF MD [facility] [address] [place] [address] 01/28/2025 13:36:40 01/28/2025 14:16:09 Seasonal allergic rhinitis [id number] J30.2 I will request his allergy testing from [facility]. If he still has substantia l allergy we could continue his allergy shots through our practice. If his allergies are minimal he could consider ending immunother apy as he has been doing it for more than 5 years. We will plan a telehealth visit to review. Health Concerns Section Related Observation LastModified by Organization Sumit dias LastModified Time None Recorded Concern Status LastModified by Organization Details LastModified Time None Recorded Advance Directives Directive None Recorded Payers Insurance Date Sequence Insurance Name Policy Number Policy Up Covered Member ID Up Member ID Guarantor Name 01/28/2025 1 [place]ICARE [place] [employer] Edinson Munoz [id number] Edinson Rainey Alexander 01/28/[address] [place] [address] [id number] Edinson Munoz [id number] Edinson Rainey Alexander Notes Date Note Type Note Provider Name and Address Organization Details Recorded Time 01/28/2025 text/html He has been receiving SCIT for over 5 years at [facility]. Had updated testing 2 weeks ago. He is interested in changing his immunotherapy to our practice as it is more convenient. He feels he has benefited from immunotherapy. He has less exacerbations of his allergy symptoms. JERE JEFF MD [address] [place] [address], [phone], [facility] - [facility] 01/28/2025 14:16:02
--- OUTSIDE RECORDS SUMMARY | 2025-01-29 10:29 | XMS_ITS | Patient Health Record ---
Author Organization [facility] Address [address] [place] [address] Care Team Providers Care Rehabilitation Team Lead Name Role Phone Gopal Anderson MD Primary Care Provider Aristides Hoffman Jr Unavailable Allergies Allergen (clinical drug ingredient) Drug/Non Drug Allergy documented on EMR Reaction Allergy Type Onset Date Status seasonal (uncoded) Unknown Allergy A ctive Reason For Referral No Information Medications Medication SIG (Take, Route, Frequency, Duration) Notes Start Date End Date Status Ketorolac Tromethamine 10 MG TAKE 1 TABLET BY MOUTH EVERY 6 HOURS FOR 5 DAYS NEEDED FOR PAIN Oral for 5 Active Omeprazole 20 MG Oral for 30 A ctive Rosuvastatin Calcium 10 MG TAKE 1 TABLET BY MOUTH DAILY Diagnosis Unavailable Oral for 90 Active Immunizations Vaccine Route Administration Date Status Comme nts Flu vaccine no Preserv 3 and > Unknown 05/11/2015 Admin istered Influenza Unknown 06/02/2021 Administered Problems Problem Type SNOMED Code ICD Code Onset Dates Problem Status W/U Status Risk Notes Problem 379356496 Colon cancer screening (Z12.11) Active confirmed Problem 799434421 FDC (curre nt) use of non-steroidal anti-inflammatories (NSAID) (Z79.1) Active confirmed Problem 049093665 Gastroesophageal reflux disease without esophagitis (K21.9) Active confirmed Problem 98937090 Hemorrhoids, unspecified hemorrhoid type (K64.9) Active confirmed Plan Of Treatment Future Test Test Name Order Date COLONOSCOPY 12/25/2015 Insurance Providers Payer Name Payer Address Payer Phone Subscriber Number Group Number Insured Name Patient Relationship to Insured Coverage Start Date Coverage End Date MEDICARE OF [place] [address] [place] [address] [id number] [employer] Self - patient is the insured [facility] [address] [place] [phone] [id number] [employer] Self - patient is the insured Medical (General) History Medical History History ICD Code Colonoscopy, 03/31/16, hyperplastic polyp , ten-year followup 04/05 Anxiety/depression Gastroesophageal reflux disease Elevated cholesterol Surgical History Surgery Date(Month/Year) appendectomy jaw surgery
[2025-01-29 10:41] LABS: Alanine Aminotransferase 18 U/L (0-40); Albumin Level 4.2 g/dL (3.5-5.0); Alkaline Phosphatase 50 U/L (39-117); Aspartate Amino Transferase 23 U/L (5-37); Cholesterol 146 mg/dL (<200); HDL Cholesterol 63 mg/dL (>40); Total Protein 6.6 g/dL (6.5-8.0); Triglycerides 41 mg/dL (<150)
[2025-01-29 11:32] LABS: Reflex LDLD? No
== END 2025-01-29 09:45 | disposition home or self-care (01) ==
LOC: HO.LNP 09:44
PROVIDERS: Visit Provider Internal Medicine
DX: E78.00 Pure hypercholesterolemia, unspecified (principal)
CPT/HCPCS: 80061; 80076